=== PATIENT | male | born 1975 | race Caucasian/White ===

== ENCOUNTER 2016-05-12 12:07 | Emergency (ER) | payer OTHER ==
[~2016-05-12] VITALS: Ht 180.3 cm; Wt 74.0 kg
[2016-05-12] MEDS ORDERED: [UNRECOGNIZED DRUG - CODE] OD (13:26)
[2016-05-12] MEDS ORDERED: GENT5DRO OD (13:26)
[2016-05-12] MEDS ORDERED: ERYTOO OP (13:26)
[2016-05-12] MEDS ORDERED: HYDR-3965 PO (13:26)
[2016-05-12 15:28] VITALS: BP 112/63
== END 2016-05-12 15:35 | disposition home or self-care (01) ==
LOC: EMS 12:08
DX: H57.11 Ocular pain, right eye (principal)
CPT/HCPCS: 99283; 99285

== ENCOUNTER 2018-07-04 19:36 | Emergency (ER) | payer OTHER ==
[~2018-07-04] VITALS: Ht 180.3 cm; Wt 75.0 kg
[~2018-07-04 19:36] MED LIST: ERYTOO OP; GENT5DRO OD; HYDR-4061 PO; [UNRECOGNIZED DRUG - CODE] OD
[2018-07-04] MEDS ORDERED: PROPARACAINE HCL 0.5% 15 ML OPHTHALMIC SOLUTION OD ONE (20:45)
[2018-07-04] MEDS ORDERED: FLUORESCEIN SODIUM 1 MG STRIP OD ONE (20:45)
[2018-07-04] MEDS ORDERED: DEXAMETHASONE 0.1% 5 ML OPHTHALMIC SOLUTION OD ONE (22:00)
[2018-07-04] MEDS ORDERED: CIPROFLOXACIN HCL 0.3% 2.5 ML OPHTHALMIC SOLUTION OD ONE (22:00)
[2018-07-04] MEDS ORDERED: IBUPROFEN 600 MG TABLET PO ONE (22:00)
[2018-07-04 22:42] VITALS: BP 122/70
== END 2018-07-04 22:45 | disposition home or self-care (01) ==
LOC: EMS 19:37
DX: S05.01XA Injury of conjunctiva and corneal abrasion without foreign body, right eye, initial encounter (principal); X58.XXXA Exposure to other specified factors, initial encounter; Y93.C9 Activity, other involving computer technology and electronic devices; Y92.69 Other specified industrial and construction area as the place of occurrence of the external cause; Y99.0 Civilian activity done for income or pay